=== PATIENT | male | born 1965 | race Caucasian/White ===

== ENCOUNTER 2022-09-22 16:51 | Outpatient (CLI) | payer BC, SELFPAY | END 2022-09-22 16:52 | disposition home or self-care (01) | LOC: NFLDUCREF 16:52 | PROVIDERS: PCP Internal Medicine; Visit Provider Nurse Practitioner Family | DX: R21 Rash and other nonspecific skin eruption (principal); R53.83 Other fatigue | CPT/HCPCS: 86617 ==

== ENCOUNTER 2022-10-03 08:10 | Outpatient (CLI) | payer BC, SELFPAY | END 2022-10-03 08:11 | disposition home or self-care (01) | PROVIDERS: PCP Internal Medicine; Visit Provider Internal Medicine | DX: Z00.00 Encounter for general adult medical examination without abnormal findings (principal); R53.83 Other fatigue; Z13.6 Encounter for screening for cardiovascular disorders; Z12.5 Encounter for screening for malignant neoplasm of prostate | CPT/HCPCS: 80053; 80061; 84153 ==

== ENCOUNTER 2023-03-09 07:59 | Outpatient (CLI) | payer BC, SELFPAY ==
--- NOTE | 2023-03-09 09:21 | W.ANESCHARGE ---
Anesthesia Charges Start Date/Time Anesthesia Start Date: 03/09/23 Anesthesia Start Time: 08:24 Stop Date/Time Anesthesia Stop Date: 03/09/23 Anesthesia Stop Time: 09:14
--- NOTE | 2023-03-09 11:42 | W.ANESCHARGE ---
Anesthesia Charges Start Date/Time Anesthesia Start Date: 03/09/23 Anesthesia Start Time: 08:24 Stop Date/Time Anesthesia Stop Date: 03/09/23 Anesthesia Stop Time: 09:14
== END 2023-03-09 08:00 | disposition home or self-care (01) ==
LOC: OP CLINIC 07:59
PROVIDERS: PCP Internal Medicine; Visit Provider Surgery
DX: Z12.11 Encounter for screening for malignant neoplasm of colon (principal); K63.5 Polyp of colon; Z86.010 Personal history of colon polyps
CPT/HCPCS: 00811; 45381; 45385; 88305; J2704

== ENCOUNTER 2023-08-24 08:00 | Outpatient (RCR) | payer BC, SELFPAY | END 2023-10-31 16:05 | disposition home or self-care (01) | PROVIDERS: PCP Internal Medicine; Visit Provider Orthopaedic Surgery Sports Medicine | DX: M25.562 Pain in left knee (principal); M62.81 Muscle weakness (generalized); Z51.89 Encounter for other specified aftercare | CPT/HCPCS: 97110; 97140; 97161 ==

== ENCOUNTER 2024-03-11 06:34 | Outpatient (CLI) | payer BC, SELFPAY ==
--- NOTE | 2024-03-11 07:52 | W.ANESCHARGE ---
Anesthesia Charges Start Date/Time Anesthesia Start Date: 03/11/24 Anesthesia Start Time: 07:22 Stop Date/Time Anesthesia Stop Date: 03/11/24 Anesthesia Stop Time: 07:53
== END 2024-03-11 06:35 | disposition home or self-care (01) ==
LOC: OP CLINIC 06:35
PROVIDERS: PCP Internal Medicine; Visit Provider Surgery
DX: Z12.11 Encounter for screening for malignant neoplasm of colon (principal); D17.5 Benign lipomatous neoplasm of intra-abdominal organs; K64.4 Residual hemorrhoidal skin tags; Z86.0100 Personal history of colon polyps, unspecified
CPT/HCPCS: 00811; 45380; 88305; J2704

== ENCOUNTER 2024-05-09 07:40 | Outpatient (CLI) | payer BC, SELFPAY | END 2024-05-09 07:41 | disposition home or self-care (01) | LOC: NFLDREF 05-13 18:05 | PROVIDERS: PCP Internal Medicine; Referring Provider Internal Medicine; Visit Provider Internal Medicine | DX: R53.83 Other fatigue (principal); R63.5 Abnormal weight gain; Z12.5 Encounter for screening for malignant neoplasm of prostate; Z13.6 Encounter for screening for cardiovascular disorders; Z13.9 Encounter for screening, unspecified | CPT/HCPCS: 80053; 80061; G0103 ==